=== PATIENT | female | born 2005 | race Caucasian/White ===

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

== ENCOUNTER 2025-06-01 18:28 | Emergency (ER) | payer OTHER, SELFPAY ==
--- NOTE | 2025-06-01 18:32 | ED.GENADULT ---
HPI - General Adult General Chief complaint: Upper Respiratory Infection Stated complaint: FEVER/BODY ACHES/RUNNY NOSE/HEADACHE/COUGH Time Seen by Provider: 06/01/25 18:28 Source: patient Mode of arrival: ambulatory Limitations: no limitations History of Present Illness HPI narrative: Patient is a 20-year-old female presenting with complaint of upper respiratory symptoms. Symptoms reported include tactile fever, body aches, chills, runny nose, congestion, headache, cough. Symptoms began this afternoon. Patient reports positive at home covid test. No treatments initiated prior to arrival. No known exposure to COVID, flu, strep, pneumonia. No additional complaints. Related Data Home Medications ?Medication ?Instructions ?Recorded ?Confirmed ?Last Taken ?Type escitalopram oxalate 10 mg tablet mg 06/01/25 Unknown History spironolactone 100 mg tablet mg 06/01/25 Unknown History Allergies Allergy/AdvReac Type Severity Reaction Status Date / Time Sulfa (Sulfonamide Allergy Mild Rash Verified 06/01/25 18:52 Antibiotics) Review of Systems Review of Systems: EYES: Denies visual changes, redness, or discharge. ENT: Denies sore throat or otalgia. CARDIOVASCULAR: Denies chest pain, palpitations, or edema. RESPIRATORY: Denies dyspnea. GASTROINTESTINAL: Denies abdominal pain, nausea, vomiting, or diarrhea. GENITOURINARY: Denies dysuria or hematuria. SKIN: Denies rash, itching, or wounds. MUSCULOSKELETAL: Denies back pain, joint pain, or myalgia. NEUROLOGIC: Denies numbness, tingling, or weakness. PSYCH: Denies depression or anxiety. All systems reviewed & are unremarkable except as noted in HPI and below Exam Narrative: GENERAL: Well-appearing, Obese,well-nourished, and in no acute distress. HEAD: Normocephalic, atraumatic. EYES: EOMI. No redness or drainage. Conjunctivae normal. ENT: Mucous membranes pink and moist. Nares clear. No rhinorrhea. TMs normal bilaterally. Throat normal. Uvula midline. NECK: Normal AROM. Supple. No lymphadenopathy. CHEST: No respiratory distress. Clear to auscultation. HEART: tachycardic. No murmur appreciated. Normal peripheral pulses. MUSCULOSKELETAL: No bony tenderness. EXTREMITIES: Normal range of motion. No edema. SKIN: Warm, dry, no rash. Capillary refill normal. Normal skin turgor. NEURO: No focal deficits. Alert and oriented x3. Gait steady. PSYCH: Normal affect. No signs of depression or anxiety. Course Course Level of Care: Express Care Visit Vital Signs Vital signs: Vital Signs Temperature 100.9 F H 06/01/25 18:48 Pulse Rate 126 H 06/01/25 18:48 Respiratory Rate 16 06/01/25 18:48 Blood Pressure 131/80 06/01/25 18:48 Pulse Oximetry 100 06/01/25 18:48 Temperature 100.9 F H 06/01/25 18:48 Pulse Rate 126 H 06/01/25 18:48 Respiratory Rate 16 06/01/25 18:48 Blood Pressure 131/80 06/01/25 18:48 Pulse Oximetry 100 06/01/25 18:48 Medical Decision Making MDM Narrative Medical decision making narrative: Discussed elevated blood pressure readings with patient and advised daily BP monitoring and f/u with PCP if persisting. Vital Signs Vital Signs: Vital Signs Temperature 100.9 F H 06/01/25 18:48 Pulse Rate 126 H 06/01/25 18:48 Respiratory Rate 16 06/01/25 18:48 Blood Pressure 131/80 06/01/25 18:48 Pulse Oximetry 100 06/01/25 18:48 Temperature 100.9 F H 06/01/25 18:48 Pulse Rate 126 H 06/01/25 18:48 Respiratory Rate 16 06/01/25 18:48 Blood Pressure 131/80 06/01/25 18:48 Pulse Oximetry 100 06/01/25 18:48 Discharge Plan Discharge Clinical Impression: Viral infection, Positive self-administered antigen test for COVID-19, Elevated blood pressure reading in office without diagnosis of hypertension Patient Disposition: Home Condition: Stable Instructions: COVID-19 (Coronavirus Disease 2019) (ED) Additional Instructions: Go straight to ER should your symptoms become worse or should any new symptoms develop Patient Language: Upper Sorbian Prescriptions: No Action escitalopram oxalate 10 mg tablet spironolactone 100 mg tablet Follow-up/Referrals: Tata Todd MD [Primary Care Provider, Pediatrics] - 06/02/25 Stand Alone Forms: Work/School Release IP Time of Disposition: 19:46
[2025-06-01 18:48] VITALS: BP 131/80; PULSE 126; RESP 16; TEMP 38.3; O2SAT 100
== END 2025-06-01 20:05 | disposition home or self-care (01) ==
PROVIDERS: Emergency Provider Registered Nurse; PCP Pediatrics
DX: U07.1 COVID-19 (principal); R03.0 Elevated blood-pressure reading, without diagnosis of hypertension
CPT/HCPCS: 99211; G0463